=== PATIENT | female | born 1975 | race Caucasian/White ===

== ENCOUNTER 2020-06-21 10:14 | Day surgery (SDC) | payer OTHER ==
[2020-06-18 13:58] LABS: HEMATOCRIT 35.2 % (36.0-47.0); HEMOGLOBIN 11.2 g/dL (12.0-15.5); MEAN CORPUSCULAR HEMOGLOBIN 26.3 pg (27.0-33.4); MEAN CORPUSCULAR HGB CONC 31.9 g/dL (32.0-36.0); MEAN CORPUSCULAR VOLUME 82 fl (80-97); PLATELET COUNT 285 10^3/uL (150-450); RED BLOOD COUNT 4.27 10^6/uL (3.72-5.28); RED CELL DISTRIBUTION WIDTH 17.3 % (11.5-14.0); WHITE BLOOD COUNT 5.1 10^3/uL (4.0-10.5)
[2020-06-18 14:11] LABS: APPEARANCE,URINE SLIGHTLY-CLOUDY; BILIRUBIN,URINE NEGATIVE (NEGATIVE); COLOR,URINE YELLOW; GLUCOSE, URINE NEGATIVE (NEGATIVE); KETONES,URINE NEGATIVE (NEGATIVE); LEUKOCYTE ESTERASE,URINE SMALL (NEGATIVE); NITRITE,URINE NEGATIVE (NEGATIVE); PROTEIN,URINE NEGATIVE (NEGATIVE); URINE SPECIFIC GRAVITY 1.008; UROBILINOGEN,URINE NEGATIVE mg/dL (<2.0)
[2020-06-18 14:15] LABS: ALBUMIN 4.8 g/dL (3.5-5.0); ALKALINE PHOSPHATASE 63 U/L (38-126); ANION GAP 9 (5-19); ASPARTATE AMINO TRANSFERASE 25 U/L (14-36); BILIRUBIN,TOTAL 0.5 mg/dL (0.2-1.3); BLOOD UREA NITROGEN 12 mg/dL (7-20); CALCIUM 9.7 mg/dL (8.4-10.2); CARBON DIOXIDE 28 mmol/L (22-30); CHLORIDE 100 mmol/L (98-107); GLUCOSE 83 mg/dL (75-110); POTASSIUM 4.1 mmol/L (3.6-5.0); TOTAL PROTEIN 8.1 g/dL (6.3-8.2)
[~2020-06-21 10:14] MED LIST: CEFAZOLIN 1 GM/D5W RTU 1 GM/50 ML RTUPB IV ONE; CEFAZOLIN 1 GM/D5W RTU 1 GM/50 ML RTUPB IV PRN; DEXAMETHASONE SOD PHOSPHATE INJ 4 MG/1 ML VIAL ONE; LACTATED RINGERS 1000 ML IV PRN; LIDOCAINE 0.5% INJ-PF (5 MG/ML) 50 ML SDV SUBCUT PRN; ONDANSETRON HCL INJ/PF 4 MG/2 ML SDV ONE; RINGERS SOLUTION,LACTATED 1,000 ML IV PRN; SCOPOLAMINE HYDROBROMIDE 1.5 MG PATCH.TD72 TD PRN
[2020-06-21] MEDS ORDERED: SCOPOLAMINE HYDROBROMIDE 1.5 MG PATCH.TD72 ONE (10:34)
[2020-06-21] MEDS ORDERED: LIDOCAINE 2% INJ-PF (20 MG/ML) 10 ML AMPUL ONE (13:37)
[2020-06-21] MEDS ORDERED: FENTANYL CITRATE INJ/PF 100 MCG/2 ML AMPUL ONE (13:37)
[2020-06-21] MEDS ORDERED: DEXAMETHASONE SOD PHOSPHATE INJ 4 MG/1 ML VIAL ONE (13:38)
[2020-06-21] MEDS ORDERED: MIDAZOLAM 2 MG/2 ML INJ ONE (13:38)
[2020-06-21] MEDS ORDERED: ONDANSETRON HCL INJ/PF 4 MG/2 ML SDV ONE (13:38)
[2020-06-21] MEDS ORDERED: PROPOFOL INJ 200 MG/20 ML VIAL IV ONE (13:38)
[2020-06-21] MEDS ORDERED: HYDROMORPHONE HCL INJ/PF 2 MG/ML AMPULE ONE (14:33)
[2020-06-21] MEDS ORDERED: LIDOCAINE 1%/EPINEPHRINE INJ 20 ML VIAL ONE (14:53)
[2020-06-21] MEDS ORDERED: PROMETHAZINE HCL INJ 25 MG/1 ML VIAL IV PRN ×3 (14:57→16:07)
[2020-06-21] MEDS ORDERED: DIPHENHYDRAMINE HCL 50 MG/ML VIAL IV PRN (14:57)
[2020-06-21] MEDS ORDERED: OXYCODONE-ACETAMINOPHEN 5-325 MG TABLET PO PRN ×4 (14:57→16:07)
[2020-06-21] MEDS ORDERED: FENTANYL CITRATE INJ/PF 100 MCG/2 ML AMPUL IV PRN ×3 (14:57)
[2020-06-21] MEDS ORDERED: MEPERIDINE HCL/PF INJ 25 MG/1 ML DISP.SYRIN IV PRN (14:57)
[2020-06-21] MEDS ORDERED: MORPHINE SULFATE 10 MG/ML INJ IV PRN ×2 (14:57→16:07)
[2020-06-21] MEDS ORDERED: RINGERS SOLUTION,LACTATED 1,000 ML IV PRN (16:07)
[2020-06-21] MEDS ORDERED: SIMETHICONE 80 MG TAB.CHEW PO PRN (16:07)
[2020-06-21] MEDS ORDERED: ACETAMINOPHEN 325 MG TABLET PO PRN (16:07)
[2020-06-21] MEDS ORDERED: ACETAMINOPHEN 1,000 MG/100 ML RTUPB IV PRN (16:07)
--- NOTE | 2020-06-21 16:12 | Operative Report ---
Operative Report DATE OF SURGERY: 06/21/20 PREOPERATIVE DIAGNOSIS: Abnormal uterine bleeding, symptomatic fibroids, pelvic pain POSTOPERATIVE DIAGNOSIS: Same OPERATION: Laparoscopic-assisted vaginal hysterectomy with bilateral salpingectomy SURGEON: JACINDA DAVIS 1ST SLUNK SKINNER: BIENVENIDO BREEN 2ND Environmental Technician: FCO VERDIN ANESTHESIA: GA TISSUE REMOVED OR ALTERED: Uterus cervix bilateral fallopian tubes COMPLICATIONS: None ESTIMATED BLOOD LOSS: 300 cc INTRAOPERATIVE FINDINGS: Uterus approximately 12 weeks in size several fibroids PROCEDURE: She was taken to the operating room prepared and draped in a normal sterile fashion in a dorsal lithotomy position with Luis Fernando stirrups. A Goetz catheter was placed to gravity under sterile conditions. A sterile speculum was placed in the vagina and the cervix was grasped on the anterior lip with a single-tooth tenaculum and a Hulka clamp was placed through the cervical canal for uterine manipulation without difficulty. Sterile speculum was removed as well as the surgeons gloves were changed and attention was turned to the upper portion of the case. An umbilical skin incision was made to accommodate a 5 mm laparoscopic port. The peritoneal cavity was entered sharply with a varies needle and confirmation of peritoneal cavity entry was made with free-flowing sterile water through the needle. Abdomen was then inflated with approximately 2 L of CO2 gas. The varies needle was removed and the 5 mm port was placed through this incision without difficulty. That was then introduced and the above findings were noticed as the patient was placed in steep Trendelenburg. Under direct visualization 2 5 mm ports were placed on either side of the umbilicus approximately 10 cm from the umbilicus. A blunt probe was used to sweep away the bowel. Beginning with the right adnexa the fallopian tube segment was removed using the LigaSure. the fallopian tube was placed in the posterior culdesac for vaginal removal. The right round ligament was divided again using the LigaSure and the uterine Arteries were skeletonized using the LigaSure and some blunt dissection. We then turned our attention to the left portion of the adnexa and the left fallopian tube was noted and ligated with the LigaSure. Again carried through the uterine artery dissection the LigaSure with good hemostasis maintained throughout. the bladder flap was completed using the Ligasure and blunt dissection. I then turn the ligasure to the right adnexa once more and removed the clear endometiosis nodules with the Ligasure. This was removed through the trocar. At this time attention was then turned to the vaginal part portion of the case. Abdomen was deflated and the camera and instruments were removed from the abdomen we then placed a short weighted speculum into the vagina the single-tooth tenaculum was removed. The cervix was then grasped with toothed triple tooth Arya's and was injected circumferentially with 10 cc of bupivacaine with epi. The cervix was then scored in a circumferential fashion and the mucosa was dissected away from the lower uterine segment and cervix with sharp dissection using the Mariscal scissors. The posterior cul-de-sac was entered sharply using the Mayos and a long weighted speculum replaced the short weighted speculum. the fallopian tube segments were located and one was successsfully removed at this time. We then turned our attention to entering the anterior cul-de-sac which was completed and a Spenser blade was placed into this defect to hold the bladder away. Uterus sacral ligaments were then clamped and cut on both sides using 0 Vicryl. The uterine arteries were then transected and ligated using a clamp and cut technique with the krystina clamp and 0-vicryl ties. the specimen was completely freed. The specimen was then removed and passed off the field. The vaginal cuff was then closed with 0 Vicryl runner. . Good hemostasis was noted . Abdomen was then reinflated and the camera was introduced through the umbilical port for another look the patient was placed into Trendelenburg once more. The cuff was carefully inspected and found to be hemostatic. The abdomen was carefully suction irrigated. With no evidence of hydroureter. No evidence of of bleeding. . the case was then concluded and the abdomen was deflated through the umbilical port. ports were removed. The skin was closed at all 3 sites using 4-0 Vicryl. patient tolerated procedure well sponge lap and needle counts were correct x2 and the patient was taken recovery in stable condition.
[2020-06-21] MEDS ORDERED: ACETAMINOPHEN 1,000 MG/100 ML RTUPB IV ONE (16:20)
[2020-06-21] MEDS ORDERED: DOCUSATE SODIUM 100 MG CAPSULE PO SCH (18:00)
[2020-06-21] MEDS: KETOROLAC TROMETHAMINE INJ/PF 30 MG/1 ML SDV IV SCH (22:00)
[2020-06-21] MEDS: IBUPROFEN 800 MG TABLET PO SCH (22:44)
[2020-06-22] MEDS: IBUPROFEN 800 MG TABLET PO SCH ×2 (00:32→06:07)
[2020-06-22 06:27] LABS: HEMOGLOBIN 9.1 g/dL (12.0-15.5); MEAN CORPUSCULAR HEMOGLOBIN 26.6 pg (27.0-33.4); MEAN CORPUSCULAR HGB CONC 32.6 g/dL (32.0-36.0); MEAN CORPUSCULAR VOLUME 82 fl (80-97); PLATELET COUNT 211 10^3/uL (150-450); RED BLOOD COUNT 3.43 10^6/uL (3.72-5.28); RED CELL DISTRIBUTION WIDTH 17.3 % (11.5-14.0); WHITE BLOOD COUNT 8.6 10^3/uL (4.0-10.5)
[2020-06-22] MEDS: KETOROLAC TROMETHAMINE INJ/PF 30 MG/1 ML SDV IV SCH (06:27)
--- NOTE | 2020-06-22 07:59 | PDOC DISCHARGE SUMMARY ---
Impression - Admit/DC Date/PCP Admission Date/Primary Care Provider: EPIFANIO NICK PA-C Discharge Date: 06/22/20 - Discharge Diagnosis (1) Abnormal uterine bleeding Is this a current diagnosis for this admission?: Yes (2) Pelvic pain Is this a current diagnosis for this admission?: Yes (3) Fibroids, intramural Is this a current diagnosis for this admission?: Yes (4) Fibroids, submucosal Is this a current diagnosis for this admission?: Yes (5) Fibroids, subserous Is this a current diagnosis for this admission?: Yes - Assessment Summary: patient underwent LAVH w/ bilateral salpingectomy. Has had an unremarkable postoperative course. Is voiding easily and ready for discharge home. - Additional Information Resuscitation Status: Full Code Discharge Diet: As Tolerated Discharge Activity: Balance Activity w/Rest, No Driving, No Lifting Over 10 Pounds, No Lifting/Push/Pulling, Pelvic Rest, No tub bath, Walk Frequently Referrals: JACINDA DAVIS MD [ACTIVE STAFF] - 07/02/20 8:30 am (CALL THE OFFICE FOR QUESTIONS AND CONCERNS.) EPIFANIO NICK PA-C [Primary Care Provider] - Prescriptions: Oxycodone HCl/Acetaminophen [Percocet 5-325 mg Tablet] 1 tab PO Q4HP PRN #30 tablet PRN Reason: Docusate Sodium [Colace 100 mg Capsule] 100 mg PO BID #60 capsule Ibuprofen [Motrin 800 mg Tablet] 800 mg PO Q8H #60 tablet Home Medications: Ascorbic Acid [Vitamin C 500 mg Tablet] 500 mg PO DAILY 06/18/20 Collagen,Bovine [Triple Graham Collagen] 10 gm TP DAILY 06/18/20 Iron,Carb/Vit C/Vit B12/Folic [Iron 100 Plus Tablet] 1 each PO DAILY 06/18/20 Docusate Sodium [Colace 100 mg Capsule] 100 mg PO BID #60 capsule 06/22/20 Ibuprofen [Motrin 800 mg Tablet] 800 mg PO Q8H #60 tablet 06/22/20 Oxycodone HCl/Acetaminophen [Percocet 5-325 mg Tablet] 1 tab PO Q4HP PRN #30 tablet 06/22/20 History of Present Illiness History of Present Illness: LJ LEMONS is a 45 year old female Physical Exam - Physical Exam Vital Signs: Temp Pulse Resp BP Pulse Ox 98.2 F 68 18 110/58 L 100 06/22/20 04:52 06/22/20 04:52 06/22/20 04:52 06/22/20 04:52 06/22/20 04:52 Intake & Output 06/21/20 06/22/20 06/23/20 06:59 06:59 06:59 Intake Total 3250 Output Total 2450 Balance 800 Weight 78.1 kg Results Laboratory Results: WBC 8.6 10^3/uL (4.0-10.5) 06/22/20 06:07 RBC 3.43 10^6/uL (3.72-5.28) L 06/22/20 06:07 Hgb 9.1 g/dL (12.0-15.5) L 06/22/20 06:07 Hct 28.0 % (36.0-47.0) L 06/22/20 06:07 MCV 82 fl (80-97) 06/22/20 06:07 MCH 26.6 pg (27.0-33.4) L 06/22/20 06:07 MCHC 32.6 g/dL (32.0-36.0) 06/22/20 06:07 RDW 17.3 % (11.5-14.0) H 06/22/20 06:07 Plt Count 211 10^3/uL (150-450) 06/22/20 06:07 Sodium 136.9 mmol/L (137-145) L 06/18/20 12:45 Potassium 4.1 mmol/L (3.6-5.0) 06/18/20 12:45 Chloride 100 mmol/L (98-107) 06/18/20 12:45 Carbon Dioxide 28 mmol/L (22-30) 06/18/20 12:45 Anion Gap 9 (5-19) 06/18/20 12:45 BUN 12 mg/dL (7-20) 06/18/20 12:45 Creatinine 0.73 mg/dL (0.52-1.25) 06/18/20 12:45 Est GFR ( Amer) > 60 (>60) 06/18/20 12:45 Est GFR (MDRD) Non-Af > 60 (>60) 06/18/20 12:45 Glucose 83 mg/dL (75-110) 06/18/20 12:45 Calcium 9.7 mg/dL (8.4-10.2) 06/18/20 12:45 Total Bilirubin 0.5 mg/dL (0.2-1.3) 06/18/20 12:45 Direct Bilirubin 0.0 mg/dL (0.0-0.4) 06/18/20 12:45 Neonat Total Bilirubin Not Reportable 06/18/20 12:45 Neonat Direct Bilirubin Not Reportable 06/18/20 12:45 Neonat Indirect Bili Not Reportable 06/18/20 12:45 AST 25 U/L (14-36) 06/18/20 12:45 ALT 17 U/L (<35) 06/18/20 12:45 Alkaline Phosphatase 63 U/L (38-126) 06/18/20 12:45 Total Protein 8.1 g/dL (6.3-8.2) 06/18/20 12:45 Albumin 4.8 g/dL (3.5-5.0) 06/18/20 12:45 Urine Color YELLOW 06/18/20 12:35 Urine Appearance SLIGHTLY-CLOUDY 06/18/20 12:35 Urine pH 7.0 (5.0-9.0) 06/18/20 12:35 Ur Specific [place] 1.008 06/18/20 12:35 Urine Protein NEGATIVE mg/dL (NEGATIVE) 06/18/20 12:35 Urine Glucose (UA) NEGATIVE mg/dL (NEGATIVE) 06/18/20 12:35 Urine Ketones NEGATIVE mg/dL (NEGATIVE) 06/18/20 12:35 Urine Blood NEGATIVE (NEGATIVE) 06/18/20 12:35 Urine Nitrite NEGATIVE (NEGATIVE) 06/18/20 12:35 Urine Bilirubin NEGATIVE (NEGATIVE) 06/18/20 12:35 Urine Urobilinogen NEGATIVE mg/dL (<2.0) 06/18/20 12:35 Ur Leukocyte Esterase SMALL (NEGATIVE) H 06/18/20 12:35 Urine WBC (Auto) 10 /HPF 06/18/20 12:35 Urine RBC (Auto) 2 /HPF 06/18/20 12:35 Urine Bacteria (Auto) 2+ /HPF 06/18/20 12:35 Squamous Epi Cells Auto 10 /HPF 06/18/20 12:35 Urine Mucus (Auto) RARE /LPF 06/18/20 12:35 Urine Ascorbic Acid NEGATIVE (NEGATIVE) 06/18/20 12:35 Urine HCG, Qual NEGATIVE (NEGATIVE) 06/21/20 10:25 COVID-19 Source See comment 06/18/20 12:37 COVID-19 (DEVANTE) Not Detected (Not Detect) 06/18/20 12:37 Blood Type O POSITIVE 06/18/20 12:45 Antibody Screen NEGATIVE 06/18/20 12:45 Stroke Is this a Stroke Patient?: No Acute Heart Failure Is this a Heart Failure Patient?: No
[2020-06-22 08:47] VITALS: BP 117/65
== END 2020-06-22 08:38 | disposition home or self-care (01) ==
LOC: OROUT 10:14 → 2N 16:50 → OROUT 06-22 08:38
PROVIDERS: ATTEND Obstetrics & Gynecology
DX: N93.9 Abnormal uterine and vaginal bleeding, unspecified (principal); R10.2 Pelvic and perineal pain; N87.9 Dysplasia of cervix uteri, unspecified; N72 Inflammatory disease of cervix uteri; D25.1 Intramural leiomyoma of uterus; D25.0 Submucous leiomyoma of uterus; D25.2 Subserosal leiomyoma of uterus; N80.0 Endometriosis of uterus; N83.8 Other noninflammatory disorders of ovary, fallopian tube and broad ligament; Z20.828 Contact with and (suspected) exposure to other viral communicable diseases; Z98.51 Tubal ligation status; Z80.41 Family history of malignant neoplasm of ovary
CPT/HCPCS: 86900; 86901; 36415 ×2; 86850; 85027 ×2; 81025; 80053; 81001; 88307 ×2; 94799; 00840; 58552; C1758; U0003; J2250; J0690; J1100; J3010; J3490 ×2; J1885 ×2; J1170; J2405; J7120; J2704; J0131; C9803; 840; 87635